=== PATIENT | female | born 1955 | race Caucasian/White ===

== ENCOUNTER 2018-12-29 09:49 | Inpatient (IN) ==
[2018-12-29] MEDS ORDERED: SALINE LOCK IV FLUID XX ONE (13:25)
--- NOTE | 2018-12-29 13:30 | EKG Report ---
Test Performed on : 12/29/2018 1:26:38 PM Test Reason : chest pain Blood Pressure : / mmHG Vent. Rate : 080 BPM Atrial Rate : 080 BPM P-R Int : 134 ms QRS Dur : 130 ms QT Int : 394 ms P-R-T Axes : 071 -51 122 degrees QTc Int : 454 ms Normal sinus rhythm. Xornt-Wpmwnoasz-Rhwqf Abnormal ECG When compared with ECG of 22-DEC-2008 18:47, No significant change was found Confirmed by Zion CRUZ, Taran Hermosillo ([id number]) on 12/30/2018 6:51:14 AM
[2018-12-29] MEDS: DUONEB (A & A) INH PRN ×2 (14:26→21:26)
[2018-12-29 14:37] LABS: ALLEN TEST YES; BE -1.1 mmoll (-3.0-3.0); BLOOD TYPE ARTERIAL; METHB 0.9 % (0.0-1.5); O2(CT) 18.4 mL/dL (15.0-23.0); O2HB 95.1 % (95.0-99.0); PCO2(98.6) 38 mmHg (35-45); PO2(98.6) 78 mmHg (60-100); SAMPLE BLOOD; SAO2 97.5 % (95.0-100.0); THB 13.7 g/dL (11.5-17.4)
[2018-12-29 14:38] LABS: MODALITY ROOM AIR
[2018-12-29] MEDS: SOLU-MEDROL IV SCH ×2 (14:42→23:56)
[2018-12-29] MEDS: PROTONIX IV SCH (14:44)
[2018-12-29] MEDS: SODIUM CHLORIDE 0.9% INJ SCH (14:44)
[2018-12-29] MEDS: LEVAQUIN 500 MG/D5W 500 MG/100 ML IVPB IV SCH (14:46)
[2018-12-29] MEDS: TENORMIN PO SCH (20:58)
[2018-12-29] MEDS: ATIVAN PO SCH (20:58)
[2018-12-29] MEDS: LOVENOX SUBQ SCH (20:58)
[2018-12-29] MEDS: HUMULIN R SUBQ SCH (20:59)
[2018-12-29] MEDS: DESYREL PO SCH (21:01)
--- NOTE | 2018-12-29 21:15 | HISTORY AND PHYSICAL ---
CHIEF COMPLAINT: Cough, shortness of breath, and wheezing. HISTORY OF PRESENT ILLNESS: She is a 63-year-old white female who was seen for third time with asthmatic bronchitis, not able to get any better. The patient had 3 treatments. Still wheezing and nonproductive cough. No chest pain. As a result, admitted to the hospital for acute asthma exacerbation and failure of outpatient treatment. The patient was seen at the [facility] in my office as well as [facility] 3 times. PAST MEDICAL HISTORY: Depression, diabetes, metabolic syndrome, acid reflux disease, hyperlipidemia, hypothyroidism, Meniere's disease on the left side, WPW syndrome, and primary insomnia. PAST SURGICAL HISTORY: Sinus surgery x2, tonsillectomy, complete hysterectomy, and carpal tunnel surgery on the right side by Dr. Cornejo. MEDICATIONS IN MY OFFICE: Atenolol 50 once daily, Effexor 150 daily, fenofibrate 150 mg daily, Linzess 145 mcg daily, lorazepam 1 mg b.i.d., metformin 500 one tablet p.o. b.i.d., Prilosec 40 mg daily, Synthroid 75 mcg daily, trazodone 100 mg daily, Viibryd 40 mg daily, and Zantac 150 daily. ALLERGIES: Reported to [employer]. SOCIAL HISTORY: . One child. Retired. No smoking. No drug abuse. No alcohol abuse. FAMILY HISTORY: Father at the age of 60 from diabetes. Mom of breast cancer at 48. HEALTH MAINTENANCE: Influenza vaccine in 2018. Last mammography 11/[address] Cabrera. Colonoscopy 08/[address] Sanchez. REVIEW OF SYSTEMS: HEENT: No headache. No vision problem. No earache. No sore throat. Nonproductive cough. No neck pain. No goiter. Cardiopulmonary: No chest pain, shortness of breath, cough, wheezing, and no swelling of feet. No PND. No orthopnea. Gastrointestinal: No nausea, vomiting, abdominal pain, or bleeding per rectum. GENITOURINARY: No history of hesitancy, frequency, dysuria. Musculoskeletal: No swelling of legs. No joint pain. Neurologic: No focal symptoms or weakness. PHYSICAL EXAMINATION: VITAL SIGNS: The patient's temperature is 98.3. Vitals are stable . Oxygen saturation is 93% on room air. HEENT: Exam within normal limits. Atraumatic, normocephalic. Pupils equal, react to light. TMs are normal. No sore throat. Congested. NECK: Neck is supple. No lymphadenopathy. CHEST: Bilaterally wheezing. HEART: Sounds are very distant. ABDOMEN: Belly is soft, obese, nontender. Good bowel sounds. EXTREMITIES: No peripheral edema or cyanosis. NEUROLOGIC: No obvious neurological deficits. INVESTIGATIONS: ABG: pH is 7.40, pCO2 of 38, pO2 of 78. CK and troponin were normal. Chest x-ray was stable. ASSESSMENT AND PLAN: A 63-year-old white female admitted to the hospital with: 1. Acute asthma exacerbation with failure of outpatient treatment. Plan is bronchodilators, IV Levaquin, and IV steroids. 2. Deep venous thrombosis and gastrointestinal prophylaxis with IV Protonix and Lovenox. 3. Reconcile home medications. 4. Initiate vaccination protocol. 5. History of Cvlla-Hrffnjltm-Ybvob syndrome, stable. We will follow up. cc: Bruce Glass MD
[2018-12-30] MEDS: SOLU-MEDROL IV SCH ×3 (06:12→23:28)
[2018-12-30] MEDS: HUMULIN R SUBQ SCH ×4 (06:14→21:23)
--- NOTE | 2018-12-30 07:27 | Diag Imaging Result Doc PS360 ---
EXAM: CHEST-2 VIEWS 12/30/2018 HISTORY: hypoxia TECHNIQUE: PA and lateral chest COMMENT: There is no evidence of acute cardiac or pulmonary disease. Compared to 09/03/2013 there has been no significant change. IMPRESSION: Normal chest. Electronically signed by Micha Desai 12/30/2018 7:24 AM
[2018-12-30] MEDS: TRICOR PO SCH (08:51)
[2018-12-30] MEDS: GLUCOPHAGE PO SCH ×2 (08:51→17:13)
[2018-12-30] MEDS: TENORMIN PO SCH ×2 (08:51→21:00)
[2018-12-30] MEDS: EFFEXOR XR PO SCH (08:51)
[2018-12-30] MEDS: SYNTHROID PO SCH (08:51)
[2018-12-30] MEDS: ATIVAN PO SCH ×2 (08:51→21:22)
[2018-12-30] MEDS: VIIBRYD PO SCH (08:52)
[2018-12-30] MEDS: DUONEB (A & A) INH PRN ×2 (11:04→16:10)
[2018-12-30] MEDS: LEVAQUIN 500 MG/D5W 500 MG/100 ML IVPB IV SCH (14:12)
[2018-12-30] MEDS: PROTONIX IV SCH (14:12)
[2018-12-30] MEDS: SODIUM CHLORIDE 0.9% INJ SCH (14:12)
--- NOTE | 2018-12-30 21:03 | PROGRESS NOTE ---
DATE: 12/30/2018 SUBJECTIVE: The patient is still wheezing, shortness of breath. No chest pain. PHYSICAL EXAM: Vital signs: Temperature is 98 degrees. Vitals are stable. HEENT: Within normal limits. Neck: Supple. Chest: Is wheezing. Heart: Sounds are regular. Abdomen: Belly is soft, nontender. Good bowel sounds. Neurological: No neurological deficits. LABS: Cardiac enzymes were normal. EKG: Normal sinus, shortened MI interval, delta waves, left axis deviation. ASSESSMENT AND PLAN: 1. Acute asthma exacerbation. Plan is TO continue present treatment with IV antibiotics, IV steroids. 2. Ayhzt-Xbkgntovc-Atsro syndrome. cardiac monitor. Change the diet with diabetic diet and continue present treatment as per order sheet and will continue to monitor. Chest x-ray was negative. LEVEL OF DOCUMENTATION: 35 minutes. cc: Bruce Glass MD
[2018-12-30] MEDS: LOVENOX SUBQ SCH (21:21)
[2018-12-30] MEDS: DESYREL PO SCH (21:23)
[2018-12-31] MEDS: SOLU-MEDROL IV SCH ×3 (06:39→21:10)
[2018-12-31] MEDS: HUMULIN R SUBQ SCH ×4 (06:40→21:09)
[2018-12-31] MEDS: GLUCOPHAGE PO SCH ×2 (09:11→18:23)
[2018-12-31] MEDS: ATIVAN PO SCH ×2 (09:12→21:09)
[2018-12-31] MEDS: SYNTHROID PO SCH (09:12)
[2018-12-31] MEDS: EFFEXOR XR PO SCH (09:12)
[2018-12-31] MEDS: TENORMIN PO SCH ×2 (09:13→21:09)
[2018-12-31] MEDS: VIIBRYD PO SCH (09:13)
[2018-12-31] MEDS: TRICOR PO SCH (09:13)
[2018-12-31] MEDS: PROTONIX IV SCH (15:23)
[2018-12-31] MEDS: LEVAQUIN 500 MG/D5W 500 MG/100 ML IVPB IV SCH (15:23)
[2018-12-31] MEDS: DUONEB (A & A) INH PRN ×2 (16:05→21:04)
[2018-12-31] MEDS: LOVENOX SUBQ SCH (21:09)
[2018-12-31] MEDS: DESYREL PO SCH (21:09)
--- NOTE | 2018-12-31 21:52 | PROGRESS NOTE ---
DATE: 12/31/2018 SUBJECTIVE: The patient is still wheezing. No chest pain or shortness of breath. OBJECTIVE: Vitals: Stable. HEENT: Within normal limits. Neck: Supple. No lymphadenopathy. Chest: Scattered wheezing. Distant heart sounds. Belly is soft, nontender. No obvious deficits. INVESTIGATIONS: None. ASSESSMENT AND PLAN: 1. Acute asthma exacerbation, stable. Continue on bronchodilators. Continue IV antibiotics. 2. Ylrra-Udqymhkos-Qteyu syndrome, stable. 3. History of depression, stable. Continue on present treatment. LEVEL OF DOCUMENTATION: 25 minutes. cc: Bruce Glass MD
[2019-01-01] MEDS: SOLU-MEDROL IV SCH ×3 (06:45→21:16)
[2019-01-01] MEDS: HUMULIN R SUBQ SCH ×4 (06:46→21:16)
[2019-01-01] MEDS: PROTONIX PO SCH (06:46)
[2019-01-01] MEDS: GLUCOPHAGE PO SCH ×2 (08:53→17:28)
[2019-01-01] MEDS: VIIBRYD PO SCH (08:53)
[2019-01-01] MEDS: TENORMIN PO SCH ×2 (08:54→21:17)
[2019-01-01] MEDS: ATIVAN PO SCH ×2 (08:54→21:17)
[2019-01-01] MEDS: TRICOR PO SCH (08:54)
[2019-01-01] MEDS: SYNTHROID PO SCH (08:54)
[2019-01-01] MEDS: EFFEXOR XR PO SCH (08:54)
[2019-01-01] MEDS: DUONEB (A & A) INH PRN ×3 (09:23→23:04)
[2019-01-01] MEDS: LEVAQUIN 500 MG/D5W 500 MG/100 ML IVPB IV SCH (13:13)
--- NOTE | 2019-01-01 17:49 | PROGRESS NOTE ---
DATE: 01/01/2019 SUBJECT: The patient is still wheezing. No chest pain. No palpitations. PHYSICAL EXAMINATION: Temperature is 98 degrees, pulse 66, blood pressure is stable. Room air 98%.HEENT: Within normal limits. Neck: Supple. No lymphadenopathy. Chest: Bilateral air entry. Scattered wheezing. Heart: Sounds are regular. Belly: Soft, nontender. No neurological deficits. ASSESSMENT AND PLAN: 1. Acute asthma exacerbation, continue on IV steroids, IV Levaquin, bronchodilators . 2. Bzpvy-Xhtewclfm-Ysnzz syndrome stable. DVT, GI prophylaxis as per order sheet. LEVEL OF DOCUMENTATION: 15 minutes. cc: Bruce Glass MD
[2019-01-01] MEDS: LOVENOX SUBQ SCH (21:17)
[2019-01-01] MEDS: DESYREL PO SCH (21:17)
[2019-01-02] MEDS: PROTONIX PO SCH (06:38)
[2019-01-02] MEDS: SOLU-MEDROL IV SCH ×2 (06:38→20:37)
[2019-01-02] MEDS: HUMULIN R SUBQ SCH ×4 (06:38→21:02)
[2019-01-02] MEDS: VIIBRYD PO SCH (08:11)
[2019-01-02] MEDS: TENORMIN PO SCH ×2 (08:11→20:38)
[2019-01-02] MEDS: SYNTHROID PO SCH (08:11)
[2019-01-02] MEDS: TRICOR PO SCH (08:11)
[2019-01-02] MEDS: EFFEXOR XR PO SCH (08:11)
[2019-01-02] MEDS: GLUCOPHAGE PO SCH ×2 (08:11→16:21)
[2019-01-02] MEDS: DUONEB (A & A) INH PRN ×4 (08:17→22:52)
[2019-01-02] MEDS: ATIVAN PO SCH ×2 (08:22→20:38)
--- NOTE | 2019-01-02 12:30 | PROGRESS NOTE ---
DATE: 01/02/2019 SUBJECTIVE: The patient is 85% better, still wheezing. REVIEW OF SYSTEMS: Dry cough, slightly wheezing. No chest pain. No palpitations. Telemetry strips normal sinus, no tachycardia. OBJECTIVE: Vital signs: Temperature is 98.3, pulse is 72, blood pressure is 155/74. HEENT: Within normal limits. Neck: Supple. Chest: Scattered wheezing. Heart: Distant heart sounds. Abdomen: Belly is soft, obese, nontender. Good bowel sounds. Neurologic: No neurological deficits. ASSESSMENT AND PLAN: 1. Acute asthmatic bronchitis, slowly improving on Levaquin. Decrease IV steroids to twice a day. 2. Deep vein thrombosis and gastrointestinal prophylaxis. 3. Depression. Continue current treatment. 4. Type 2 diabetes on metformin and sliding scale with insulin coverage. 5. Ojgdo-Cddixevfk-Meknv syndrome, stable. LEVEL OF DOCUMENTATION: 25 minutes. cc: Bruce Glass MD
[2019-01-02] MEDS: LEVAQUIN 500 MG/D5W 500 MG/100 ML IVPB IV SCH (14:22)
[2019-01-02] MEDS: LOVENOX SUBQ SCH (20:38)
[2019-01-02] MEDS: DESYREL PO SCH (20:38)
[2019-01-03] MEDS: HUMULIN R SUBQ SCH ×4 (06:07→23:40)
[2019-01-03] MEDS: PROTONIX PO SCH (06:11)
[2019-01-03] MEDS: DUONEB (A & A) INH PRN ×3 (08:25→19:45)
[2019-01-03] MEDS: ATIVAN PO SCH ×2 (08:45→23:34)
[2019-01-03] MEDS: SOLU-MEDROL IV SCH ×2 (08:53→23:34)
[2019-01-03] MEDS: EFFEXOR XR PO SCH (08:53)
[2019-01-03] MEDS: VIIBRYD PO SCH (08:53)
[2019-01-03] MEDS: SYNTHROID PO SCH (08:53)
[2019-01-03] MEDS: TRICOR PO SCH (08:53)
[2019-01-03] MEDS: TENORMIN PO SCH ×2 (08:53→23:35)
[2019-01-03] MEDS: GLUCOPHAGE PO SCH ×2 (08:53→17:32)
[2019-01-03] MEDS: LEVAQUIN 500 MG/D5W 500 MG/100 ML IVPB IV SCH (12:39)
--- NOTE | 2019-01-03 14:02 | PROGRESS NOTE ---
DATE: 01/03/2019 SUBJECTIVE: The patient is still coughing and wheezing. No chest pain. No shortness of breath. OBJECTIVE: On examination, vitals are stable. HEENT Examination: Within normal limits. Neck is supple. Chest: There is bilateral air entry and scattered wheezing. Belly is soft, nontender. Good bowel sounds. No obvious deficits. ASSESSMENT AND PLAN: 1. Asthma exacerbation. Still wheezing. Continue intravenous Levaquin and intravenous steroids. 2. Deep venous thrombosis and gastrointestinal prophylaxis. 3. Hypertension. 4. Qgnvv-Cwehnznfl-Chclz, on Tenormin. 5. Type 2 diabetes, on metformin, doing very well. 6. We will initiate bronchodilators. We will hold the discharge. LEVEL OF DOCUMENTATION: 25 minutes. cc: Bruce Glass MD
[2019-01-03] MEDS: ADVAIR 100/50 DISKUS INH SCH (19:44)
[2019-01-03] MEDS: DESYREL PO SCH (23:34)
[2019-01-03] MEDS: LOVENOX SUBQ SCH (23:34)
[2019-01-04] MEDS: HUMULIN R SUBQ SCH (06:14)
[2019-01-04] MEDS: PROTONIX PO SCH (06:14)
[2019-01-04 07:31] VITALS: BP 121/60
[2019-01-04] MEDS: SYNTHROID PO SCH (08:30)
[2019-01-04] MEDS: VIIBRYD PO SCH (08:30)
[2019-01-04] MEDS: GLUCOPHAGE PO SCH (08:30)
[2019-01-04] MEDS: TRICOR PO SCH (08:30)
[2019-01-04] MEDS: EFFEXOR XR PO SCH (08:30)
[2019-01-04] MEDS: SOLU-MEDROL IV SCH (08:30)
[2019-01-04] MEDS: TENORMIN PO SCH (08:30)
[2019-01-04] MEDS ORDERED: FLU VACCINE IM ONE (08:46)
[2019-01-04] MEDS ORDERED: PREVNAR 13 IM ONE (08:47)
[2019-01-04] MEDS: ADVAIR 100/50 DISKUS INH SCH (09:03)
[2019-01-04] MEDS: DUONEB (A & A) INH PRN (09:04)
--- NOTE | 2019-01-06 05:35 | DISCHARGE SUMMARY ---
ADMISSION DATE: 12/29/2018 DISCHARGE DATE: 01/04/2019 DISCHARGING DIAGNOSIS: Acute asthma exacerbation. SECONDARY DIAGNOSES: 1. Depression. 2. Diabetes. 3. Metabolic syndrome. 4. Acid reflux disease. 5. Hyperlipidemia. 6. Hypothyroidism. 7. Meniere's disease on the left side. 8. Whit Parkinson White syndrome. 9. Primary insomnia. BRIEF HISTORY: Please see the H and P that was done on 12/29/2018. In brief, she is a 63-year- old white female who was admitted to the hospital with cough, shortness of breath, and wheezing after failure of 3 rounds of treatment in outpatient clinics. The patient was extremely wheezing. HOSPITAL COURSE: Patient was given bronchodilators, IV steroids, and IV antibiotics. Completely, she got better. The rest of the hospital course was uneventful. LABORATORY DATA FOLLOWS: ABG reveals pH is 7.47, pCO2 38, PO2 78, bicarb 24 on room air. ProBNP 35. SMA 7 is normal. Chest x-ray was stable. EKG normal sinus with WPW syndrome. DISCHARGE INSTRUCTIONS: 1. Flu vaccine 01/04/2019. 2. Pneumococcal vaccine 01/04/2019. 3. Outpatient allergy testing. 4. Singulair 10 mg daily. 5. Synthroid 75 mcg daily. 6. Ativan 1 mg p.o. b.i.d. 7. Metformin 500 b.i.d. 8. Prilosec 40 mg daily. 9. Trazodone 100 mg at bedtime. 10. Effexor 150 daily. 11. Viibryd 40 mg daily. 12. Tenormin 50 p.o. b.i.d. 13. Tricor 145 mg daily. 14. Advair 100/50 one puff b.i.d. FOLLOW UP: Follow up in my office in 2 weeks. cc: Bruce Glass MD
== END 2019-01-04 13:43 | disposition home or self-care (01) | DRG 203 ==
LOC: DIRADM 09:49 → EDIPHOLD 12:17 → 3N 14:29
PROVIDERS: ADMIT Internal Medicine; ATTEND Internal Medicine